=== PATIENT | male | born 1980 | race Caucasian/White ===

== ENCOUNTER 2022-09-21 06:33 | Emergency (ER) | payer SELFPAY ==
--- OUTSIDE RECORDS SUMMARY | 2022-09-21 06:36 | XMS REPORT | Continuity of Care Document ---
:1980 Author Organization [facility] t Address [address] [place] [address] Care Team Providers Name Role Phone PCP, PATIENT DOES NOT HAVE A Primary Care Physician UnavailDELFIN Ochoa Attending Clinician Unavailable DELFIN ARGUETA Attending Clinician Unavailable VU ORTEGA Attending Clinician Unavailable Vu Ortega MD Attending Clinician Doctor Unassigned, [place] Attending Clinician Unavailable CHRETIEN_F Attending Clinician Unavailable Edilberto Suarez Attending Clinician BRITNEY Attending Clinician Unavailable Mary Dukes Attending Clinician [phone] KARENA Attending Clinician Unavailable DR KARINA CUELLO Attending Clinician Unavailable ARMANI_F Admitting Clinician Unavailable BRITNEY Admitting Clinician Unavailable KARENA Admitting Clinician Unavailable DR KARINA CUELLO Admitting Clinician Unavailable Payers Payer Name Policy Type Policy Number Effective Date Expiration Date S ource Problems Condition Condition Condition Status Onset Resolution Last Treating Co mments Source Name Details Category Date Date Treatment Clinician Date Disorder Disorder Problem Active [facility] y of skin of Skin 3-16 [facility] No known No known Disease Unive rs active active ity of problems problems [place] [facility] Allergies, Adverse Reactions, Alerts Allergy Allergy Status Severity Reaction(s) Onset Inactive Treating Comm ents Source Name Type Date Date Clinician Bee Propensi Active Swelling 2018- Univer s Sting / ty to 02-03 ity of [place] adverse 00:00: [place] reaction 00 Medical s Branch BEE DRUG Active Swelling Univers STING / INGREDI 02-03 ity of VENOM 00:00: [place] [facility] Codeine Propensi Active Itching Univer s ty to 02-24 ity of adverse 00:00: [place] reaction 00 Medical s Branch Hydrocod Propensi Active Itching Unive rs one ty to 02-24 ity of adverse 00:00: [place] reaction Medical s Branch CODEINE DRUG Active ITCHING Univers INGREDI 02-24 ity of 00:00: [place] [facility] HYDROCOD DRUG Active ITCHING Univers ONE INGREDI 02-24 ity of 00:00: [place] [facility] Codeine Allergy Active Hives [place] [facility] Social History Social Habit Start Date Stop Date Quantity Comments Source Exposure to 2022-04-02 2022-04-12 Not sure [facility] SARS-CoV-2 (event) 00:00:00 19:22:00 [facility] Sex Assigned At [birth year] [facility] y of [place] 00:00:00 00:00:00 Medical Branch Smoking Status Start Date Stop Date Source Tobacco smoking consumption [facility] Medical unknown Branch Never Smoker [facility] Medications Ordered Filled Start Stop Current Ordering Indication Dosage Frequency Signature Comments Components Source Medication Medication Date Date Medication? Clinician (SIG) Name Name famotidine 2021- No 20mg 20 mg, Univ ers (PEPCID 04-13 Slow IV ity of (PF)) 00:30: 00:47 Push, [place] injection 00 :00 ONCE, 1 Medical 20 mg dose, On Branch 04/12/22 at 1930, DONOVAN methylpredn 2021- No 125mg 125 mg, U nivers isolone sod 04-13 Intravenou i ty of succ 00:30: 00:48 s, ONCE, 1 [place] (SOLU-MEDRO 00 :00 dose, On Medi donna L) e Branch injection 04/12/22 at 125 mg 1930, DONOVAN diphenhydrA 2021- No 25mg 25 mg, Uni vers MINE 04-13 Slow IV ity of (BENADRYL) 00:22: 00:47 Push, [place] injection 00 :00 ONCE, 1 Medical 25 mg dose, On Branch 04/12/22 at 1930, STAT cephALEXin Yes [id number] 500mg Take 1 Univers (KEFLEX) 5-03 capsule by ity o f 500 mg 00:00: mouth 4 [place] capsule 00 (four) Medical times Branch daily. mupirocin 2 Yes [id number] Apply to Univers % ointment 5-03 area(s) 3 ity of 00:00: (three) [place] 00 times Medical daily. Branch cephALEXin Yes [id number] 500mg Take 1 Univers (KEFLEX) 5-03 capsule by ity o f 500 mg 00:00: mouth 4 [place] capsule 00 (four) Medical times Branch daily. mupirocin 2 Yes [id number] Apply to Univers % ointment 5-03 area(s) 3 ity of 00:00: (three) [place] 00 times Medical daily. Branch ketorolac 2020- No 30mg 30 mg, Unive rs (TORADOL) 02-03 Intramuscu ity of injection 18:15: 17:45 lar, ONCE, [place] 30 mg 00 :00 1 dose, Medical Mon02/03/21 Branch at 1315, DONOVAN
Fa culty member approving Restricted medication : Edilberto CISNEROS ibuprofen Yes [id number] 600mg Take 1 U nivers 600 mg 7-07 tablet by ity of tablet 00:00: mouth [place] 00 every 6 Medical (six) Branch hours as needed for Pain (scale 4-6). ibuprofen Yes [id number] 600mg Take 1 U nivers 600 mg 7-07 tablet by ity of tablet 00:00: mouth [place] 00 every 6 Medical (six) Branch hours as needed for Pain (scale 4-6). ibuprofen Yes [id number] 600mg Take 1 U nivers 600 mg 7-07 tablet by ity of tablet 00:00: mouth [place] 00 every 6 Medical (six) Branch hours as needed for Pain (scale 4-6). ibuprofen Yes [id number] 600mg Take 1 U nivers 600 mg 7-07 tablet by ity of tablet 00:00: mouth [place] 00 every 6 Medical (six) Branch hours as needed for Pain (scale 4-6). predniSONE 2018- Yes [id number] Take 1 tab Univers 20 mg 7-07 orally ity of tablet 00:00: daily for [place] 00 next 3 Medical days Branch predniSONE 2019-0 Yes [id number] Take 1 tab Univers 20 mg 7-07 orally ity of tablet 00:00: daily for next 3 Medical days Branch predniSONE 2018- Yes [id number] Take 1 tab Univers 20 mg 7-07 orally ity of tablet 00:00: daily for next 3 Medical days Branch predniSONE Yes [id number] Take 1 tab Univers 20 mg 7-07 orally ity of tablet 00:00: daily for [place] next 3 Medical days Branch predniSONE 2019- Yes [id number] Take 1 tab Univers 20 mg 7-07 orally ity of tablet 00:00: daily for [place] next 3 Medical days Branch clotrimazol clotrimazol No clotrimazo [place] e-betametha e-betametha le-betamet Communi sone 1 sone 1 hasone 1 ty %-0.05 % %-0.05 % %-0.05 % Hos matilde topical topical topical l cream APPLY cream APPLY cream Clinics TO THE TO THE APPLY TO AFFECTED AFFECTED THE AND AND AFFECTED SURROUNDING SURROUNDING AND AREAS OF AREAS OF SURROUNDIN SKIN BY SKIN BY G AREAS OF TOPICAL TOPICAL SKIN BY ROUTE 2 ROUTE 2 TOPICAL TIMES PER TIMES PER ROUTE 2 DAY IN THE DAY IN THE TIMES PER MORNING AND MORNING AND DAY IN THE EVENING FOR EVENING FOR MORNING 2 WEEKS 2 WEEKS AND EVENING FOR 2 WEEKS Diflucan Diflucan No 1 Q1W Diflucan Swe brendan 150 mg 150 mg 150 mg Communi tablet Take tablet Take tablet ty 1 tablet 1 tablet Take 1 Hospi ta every week every week tablet l by oral by oral every week Cli nics route for 7 route for 7 by oral days. days. route for 7 days. mupirocin 2 mupirocin 2 No mupirocin [place] % topical % topical 2 % Commu ni ointment ointment topical ty APPLY A APPLY A ointment Hospi ta SMALL SMALL APPLY A l AMOUNT TO AMOUNT TO SMALL Clin ics THE THE AMOUNT TO AFFECTED AFFECTED THE AREA BY AREA BY AFFECTED TOPICAL TOPICAL AREA BY ROUTE 3 ROUTE 3 TOPICAL TIMES PER TIMES PER ROUTE 3 DAY DAY TIMES PER DAY Ecotrin 325 Ecotrin 325 No 1 Q1D Ecotrin [place] mg mg 325 mg Communi tablet,ente tablet,ente tablet,ent ty josiane coated josiane coated [place] Hos matilde Take 1 Take 1 coated l tablet tablet Take 1 Clinics every day every day tablet by oral by oral every day route for route for by oral 20 days. 20 days. route for 20 days. Immunizations Ordered Filled Immunization Date Status Comments Sour e Immunization Name Name Td 2021-11-30 Completed University of 00:00:[address] [facility] [place] Td 2021-11-30 Completed [facility] 00:00:[address] [facility] [place] Vital Signs Vital Name Observation Time Observation Value Comments Source Heart rate 2022-04-13 01:30:00 98 /min [facility] Oxygen saturation in 2022-04-13 01:30:00 95 /min [facility] Arterial blood by [facility] Pulse oximetry Branch Systolic blood 2022-04-13 00:23:00 135 mm[facility]Hg[facility] 2022-04-13 00:23:00 96 mm[Hg] [facility] Body temperature 2022-04-13 00:23:00 36.72 Nani [facility] Respiratory rate 2022-04-13 00:23:00 16 /min [facility] Body height 2022-04-13 00:23:00 182.9 cm [facility] Body weight 2022-04-13 00:23:00 79.379 kg [facility] BMI 2022-04-13 00:23:00 23.73 kg/m2 [facility] Systolic blood 2021-11-30 11:30:00 135 mm[Hg] Univer sity [facility] Diastolic blood 2021-11-30 11:30:00 91 mm[Hg] Unive rsity [facility] Heart rate 2021-11-30 11:30:00 74 /min Universi ty [facility] [place] [facility] Body temperature 2021-11-30 11:30:00 36.5 Nani [facility] ersity of [place] [facility] Respiratory rate 2021-11-30 11:30:00 18 /min Univ ersity [facility] [place] [facility] Body height 2021-11-30 11:30:00 182.9 cm Universi ty [facility] [place] [facility] Body weight 2021-11-30 11:30:00 79.379 kg Universi ty [facility] [place] [facility] BMI 2021-11-30 11:30:00 23.73 kg/m2 Universi ty of [facility] Oxygen saturation in 2021-11-30 11:30:00 98 /min University of Arterial blood by [facility] Pulse oximetry Branch Systolic blood 2021-02-03 17:45:00 123 mm[Hg] Univer sity of pressure [place] [facility] [place] Diastolic blood 2021-02-03 17:45:00 91 mm[Hg] [facility] Heart rate 2021-02-03 17:45:00 81 /min Universi ty [facility] [place] [facility] Respiratory rate 2021-02-03 17:45:00 17 /min [facility] ersity [facility] Oxygen saturation in 2021-02-03 17:45:00 96 /min University of Arterial blood by [facility] Pulse oximetry Branch Body temperature 2021-02-03 15:58:00 36.83 Nani [facility] ersity of [facility] [place] Body height 2021-02-03 15:58:00 180.3 cm Universi ty [facility] [place] [facility] Body weight 2021-02-03 15:58:00 77.111 kg [facility]i ty [facility] [place] [facility] BMI 2021-02-03 15:58:00 23.71 kg/m2 Universi ty [facility] BP Diastolic 2021-01-29 00:00:00 99 mm[Hg] [facility] [place] s Height 2021-01-29 00:00:00 72 [in_i] [facility] [place] s BMI (Body Mass 2021-01-29 00:00:00 22.6 kg/m2 [facility] s BP Systolic 2021-01-29 00:00:00 141 mm[Hg] [facility] [place] s Body Weight 2021-01-29 00:00:00 2665.6 [oz_av] [facility] s BP Diastolic 2020-10-13 00:00:00 104 mm[Hg] [facility] [place] s Height 2020-10-13 00:00:00 72 [in_i] [facility] [place] s BMI (Body Mass 2020-10-13 00:00:00 22.9 kg/m2 [facility] s BP Systolic 2020-10-13 00:00:00 140 mm[Hg] [facility] [place] s Body Weight 2020-10-13 00:00:00 2704 [oz_av] [facility] [place] s Procedures Procedure Date / Time Performed Performing Clinician [facility] e CONSENT/REFUSAL FOR 2021-11-30 11:24:11 Doctor Un[facility]igned, [facility] AND Name [facility] [place] TREATMENT NOTICE OF PRIVACY 2021-02-03 15:50:49 Doctor Unassigned, No [facility] CONSENT/REFUSAL FOR 2021-02-03 15:50:33 Doctor Unassigned, [facility] AND Name Medical Branch TREATMENT US, duplex, venous, 2021-01-29 00:00:00 [facility] lower extremity, [facility] s unilateral US, scrotum 2021-01-29 00:00:00 [facility] Plan of Care Planned Activity Planned Date Details Comments Source Instructions [facility] Clinics Encounters Start End Encounter Admission Attending Care Care Encounter Source Date/Time Date/Time Type Type Clinicians Facility Department ID 2022-04-12 2022-04-12 Emergency X DELFIN ARGUETA [facility] ERT 1 [id number] Univers 19:27:00 21:36:00 DELFIN ARGUETA [facility] 2022-04-12 2022-04-12 Emergency SERGIO Argueta [id number] Univers 19:27:00 21:36:00 Delfin MASON [id number] i ty of [place] [id number] [facility] [id number] [address] 2021-11-30 2021-11-30 Emergency [facility] [id number] Univers 06:26:00 07:17:00 WAKILI ity of [facility] [place] 2021-11-30 2021-11-30 Emergency Stephan[facility] [id number] Univers 06:26:00 07:17:00 Vu JOYGRADY [id number] ity of [place] [id number] [facility] [id number] [address] 2021-11-30 2021-11-30 Orders Doctor GRACE [id number] Univers 00:00:00 00:00:00 Only Unassigned, ISMA [id number] ity of [place] [facility] [id number] Jh as [id number] [address] 2021-11-29 2021-11-29 Outpatient CHRETIEN_F [facility] [id number] [place] 09:03:00 09:03:00 0502 Commun i ty Hospita l Clinics 2021-02-03 2021-02-03 Emergency Julia, K [facility] [id number] Univers 10:59:00 14:12:00 Michelle [place] [id number] i ty of [place] [id number] [facility] [id number] [address] 2021-02-03 2021-02-03 Emergency X [facility] ERT [id number] Univers 10:50:00 10:50:[address] [facility] [place] 2021-02-03 2021-02-03 Orders Doctor EDWARDS [id number] Univers 00:00:00 00:00:00 Only UnassignedISMA [id number] ity of [place] [facility] [id number] Jh as [id number] [address] 2021-01-29 2021-01-29 Outpatient WATERS_S [facility] [id number] [place] 09:37:00 09:37:00 [id number] Commun i ty Hospita l Clinics 2021-01-29 2021-01-29 Mary [facility] [place] 00:00:00 00:00:00 [facility] [place] [employer]: Hospital - ty [address], [place] [address] , Ph. 2021-01-29 2021-01-29 [facility] [id number] 00:00:00 00:00:00 Mary [id number] 2021-01-28 2021-01-28 Outpatient ERNST_S [facility] 2020 [place] 12:23:00 12:23:00 0701 Commun i ty Hospita l Clinics 2020-10-13 2020-10-13 Outpatient ERNST_S [facility] 2020 [place] 12:06:00 12:06:00 0316 Commun i ty Hospita l Clinics 2020-10-13 2020-10-13 [facility] [place] 16 [place] 00:00:00 00:00:00 [facility] [employer]: Hospital - ty [address] [place] [address] [address], [place] [address] , Ph. 2020-10-13 2020-10-13 [facility] [id number] 00:00:00 00:00:00 Mary [id number] 2020-09-21 2020-09-21 Outpatient YARAROECK [facility] [place] 10:29:00 10:29:00 _L 0222 Commun i ty Hospita l Clinics 2008-07-19 2008-07-[address] [facility] [place] [id number] [facility] 12:01:00 12:10:00 KARINA JOSEPH/LI V/SA) Results This patient has no known results.
[2022-09-21] MEDS ORDERED: IBUPROFEN 200 MG TAB PO ONE (07:33)
--- NOTE | 2022-09-21 08:12 | RAD REPORT ---
EXAM DESCRIPTION: RAD - Foot Right 3 View - 09/21/2022 7:56 am CLINICAL HISTORY: PAIN COMPARISON: FOOT W OBLIQUES dated 10/18/2010; FOOT W OBLIQUES dated 08/06/2007 FINDINGS/IMPRESSION: No acute fracture. No malalignment. Calcaneal spurring.
--- NOTE | 2022-09-21 09:17 | RAD REPORT ---
EXAM DESCRIPTION: US - Extrem Venous W Compress Mukund - 09/21/2022 8:54 am CLINICAL HISTORY: PAIN COMPARISON: No comparisons TECHNIQUE: Real-time sonographic evaluation of the lower extremity deep venous systems was performed using color Doppler, grayscale, and compression. FINDINGS: Bilateral lower extremities. Normal compressibility, flow augmentation, phasic flow and spontaneous flow is identified in both the left and right lower extremity deep venous systems. No intraluminal filling defects seen. Hypoechoic solid nodule at the patient's site of palpation measuring 13 mm is nonspecific. IMPRESSION: No DVT in either lower extremity. Hypoechoic nodule at the foot is nonspecific. MRI with without contrast could better assess if clinic ally indicated.
--- NOTE | 2022-09-21 09:28 | EDPHYS ---
Physician Documentation [facility] Name: Lefty Loomis Age: 41 yrs Sex: Male : 1980 Arrival Date: 09/21/2022 Time: 06:36 Bed 7 Private MD: ED Physician Alejo Schwartz HPI: 09/21 08:02 This 41 yrs old Male presents to ER via Ambulatory with complaints of Leg ansley Pain, Leg Swelling. 08:02 The patient presents with pain. ansley Historical: - Allergies: 07:16 Codeine; pf1 - Home Meds: 07:16 None [Active]; pf1 - PMHx: 07:16 None; pf1 - PSHx: 07:16 right foot; pf1 - Immunization history:: Adult Immunizations unknown. - Social history:: Smoking status: unknown. ROS: 08:08 Constitutional: Negative for fever, chills, and weight loss, Eyes: Negative for injury, ansley pain, redness, and discharge, ENT: Negative for injury, pain, and discharge, Neck: Negative for injury, pain, and swelling, Cardiovascular: Negative for chest pain, palpitations, and edema, Respiratory: Negative for shortness of breath, cough, wheezing, and pleuritic chest pain, Abdomen/GI: Negative for abdominal pain, nausea, vomiting, diarrhea, and constipation, Back: Negative for injury and pain, : Negative for injury, bleeding, discharge, and swelling, Skin: Negative for injury, rash, and discoloration, Neuro: Negative for headache, weakness, numbness, tingling, and seizure, Psych: Negative for depression, anxiety, suicide ideation, homicidal ideation, and hallucinations, Allergy/Immunology: Negative for hives, rash, and allergies, Endocrine: Negative for neck swelling, polydipsia, polyuria, polyphagia, and marked weight changes, Hematologic/Lymphatic: Negative for swollen nodes, abnormal bleeding, and unusual bruising. 08:08 Constitutional: Positive for 08:08 MS/extremity: Positive for pain, tenderness, of the ball of right foot. Exam: 08:08 Constitutional: This is a well developed, well nourished patient who is awake, alert, ansley and in no acute distress. Head/Face: Normocephalic, atraumatic. Eyes: Pupils equal round and reactive to light, extra-ocular motions intact. Lids and lashes normal. Conjunctiva and sclera are non-icteric and not injected. Cornea within normal limits. Periorbital areas with no swelling, redness, or edema. ENT: Nares patent. No nasal discharge, no septal abnormalities noted. Tympanic membranes are normal and external auditory canals are clear. Oropharynx with no redness, swelling, or masses, exudates, or evidence of obstruction, uvula midline. Mucous membranes moist. Neck: Trachea midline, no thyromegaly or masses palpated, and no cervical lymphadenopathy. Supple, full range of motion without nuchal rigidity, or vertebral point tenderness. No Meningismus. Chest/axilla: Normal chest wall appearance and motion. Nontender with no deformity. No lesions are appreciated. Cardiovascular: Regular rate and rhythm with a normal S1 and S2. No gallops, murmurs, or rubs. Normal PMI, no JVD. No pulse deficits. Respiratory: Lungs have equal breath sounds bilaterally, clear to auscultation and percussion. No rales, rhonchi or wheezes noted. No increased work of breathing, no retractions or nasal flaring. Abdomen/GI: Soft, non-tender, with normal bowel sounds. No distension or tympany. No guarding or rebound. No evidence of tenderness throughout. Back: No spinal tenderness. No costovertebral tenderness. Full range of motion. Male : Normal genitalia with no discharge or lesions. Skin: Warm, dry with normal turgor. Normal color with no rashes, no lesions, and no evidence of cellulitis. Neuro: Awake and alert, GCS 15, oriented to person, place, time, and situation. Cranial nerves II-XII grossly intact. Motor strength 5/5 in all extremities. Sensory grossly intact. Cerebellar exam normal. Normal gait. Psych: Awake, alert, with orientation to person, place and time. Behavior, mood, and affect are within normal limits. 08:08 Musculoskeletal/extremity: Extremities: grossly normal except: decreased ROM, pain, ROM: intact in all extremities, full active range of motion, full passive range of motion, Circulation is intact in all extremities. Sensation intact. Compartment Syndrome exam of affected extremity: is normal. DVT Exam: No signs of deep vein thrombosis. no pain, no swelling, no tenderness, negative Homans' sign noted on exam, no appreciated bluish discoloration, no erythema, no increased warmth. Vital Signs: 07:12 BP 135 / 96; Pulse 83; Resp 18; Temp 98.8; Pulse Ox 99% ; Weight 79.38 kg; Height 6 ft. pf1 0 in. (182.88 cm); Pain 8/10; 08:17 BP 123 / 91; Pulse 79; Resp 17 S; Pulse Ox 99% on R/A; kc6 09:10 BP 129 / 94; Pulse 70; Pulse Ox 98% on R/A; kc6 07:12 Body Mass Index 23.73 (79.38 kg, 182.88 cm) pf1 MDM: 07:09 Patient medically screened. [facility] 08:10 Data reviewed: vital signs, nurses notes, lab test result(s), radiologic studies, ansley doppler, plain films. Consideration of Admission/Observation Escalation of care including admission/observation considered. Management of patient was discussed with the following: Generator Operator: KASHIF RIVERO. Test considered but Not performed: Labs: NO CBC , COMP MET. 09/21 07:26 Order name: US Extremity Venous W Compression Mukund [facility] 09/21 07:26 Order name: Foot Right 3 View XRAY [facility] 09/21 08:12 Order name: RAD; Complete Time: 09:26 EDMS 09/21 09:18 Order name: US; Complete Time: 09:26 EDMS Administered Medications: 07:31 Drug: Motrin (ibuprofen) 600 mg Route: PO; kc6 08:31 Follow up: Response: No adverse reaction; Pain is decreased kc6 Disposition Summary: 09/21/22 09:27 Discharge Ordered Location: Home ansley Problem: new ansley Symptoms: have improved ansley Condition: Stable ansley Diagnosis - Pain in right foot - SOFT TISSUE NODULES (2) ansley - Varicose veins of right lower extremities with pain - NO COMPLICATIONS ansley Followup: ansley - With: Private Physician - When: 2 - 3 days - Reason: Recheck today's complaints, Continuance of care, Re-evaluation by your physician Followup: ansley - With: - When: 2 - 3 days - Reason: Recheck today's complaints, Re-evaluation by your physician Discharge Instructions: - Discharge Summary Sheet ansley - Musculoskeletal Pain ansley - Varicose Veins ansley - Foot Pain ansley Forms: - Medication Reconciliation Form ansley - Thank You Letter ansley - Antibiotic Education ansley - Prescription Opioid Use ansley - Work release form kc6 Prescriptions: - Diclofenac Sodium 75 mg Oral tablet,delayed release (DR/EC) - take 1 tablet by ORAL route 2 times per day; 20 tablet; Refills: 0, Product ansley Selection Permitted Signatures: Dispatcher [employer] Alejo Amos, Suni Dejesus MD, cha RN RN kc6 Melody kincaid RN RN pf1
--- NOTE | 2022-09-21 09:28 | ER ---
Nurse's Notes [facility] Name: Lefty Loomis Age: 41 yrs Sex: Male : 1980 Arrival Date: 09/21/2022 Time: 06:36 Bed 7 Private MD: Diagnosis: Pain in right foot-SOFT TISSUE NODULES (2);Varicose veins of right lower extremities with pain-NO COMPLICATIONS Presentation: 09/21 07:12 Chief complaint: Patient states: right lower extremity pain of 8 with bulging veins and pf1 leg fatigue,onset 1-2 months with 2 hard bumps to right medial foot,onset 2 months. Patient stated the pain is worse with ambulating and denies any injury. Coronavirus screen: Vaccine status: Patient reports being unvaccinated. Client denies travel out of the [place] in the last 14 days. At this time, the client does not indicate any symptoms associated with coronavirus-19. Ebola Screen: Patient negative for fever greater than or equal to 101.5 degrees Fahrenheit, and additional compatible Ebola Virus Disease symptoms. Initial Sepsis Screen: Does the patient meet any 2 criteria? No. Patient's initial sepsis screen is negative. Does the patient have a suspected source of infection? No. Patient's initial sepsis screen is negative. Risk Assessment: Do you want to hurt yourself or someone else? Patient reports no desire to harm self or others. 07:12 Method Of Arrival: Ambulatory pf1 07:12 Acuity: ARY 3 pf1 08:17 Onset of symptoms was June 2022. kc6 Historical: - Allergies: 07:16 Codeine; pf1 - Home Meds: 07:16 None [Active]; pf1 - PMHx: 07:16 None; pf1 - PSHx: 07:16 right foot; pf1 - Immunization history:: Adult Immunizations unknown. - Social history:: Smoking status: unknown. Screenin:20 [facility] ED Fall Risk Assessment (Adult) History of falling in the last 3 months, kc6 including since admission No falls in past 3 months (0 pts) Confusion or Disorientation No (0 pts) Intoxicated or Sedated No (0 pts) Impaired Gait No (0 pts) Mobility Assist Device Used No (0 pt) Altered Elimination No (0 pt) Score/Fall Risk Level 0 - 2 = Low Risk Oriented to surroundings, Maintained a safe environment, Educated pt \T\ family on fall prevention, incl call for assistance when getting out of bed, Assessed \T\ reinforced patient's understanding of fall precautions, Hourly rounding (assess needs \T\ fall precautionary measures) done. Abuse screen: Denies threats or abuse. Denies injuries from another. Nutritional screening: No deficits noted. Tuberculosis screening: No symptoms or risk factors identified. Assessment: 07:18 General: Appears in no apparent distress. comfortable, Behavior is calm, cooperative, kc6 appropriate for age. Pain: Complains of pain in right leg Pain radiates to groin Pain currently is 4 out of 10 on a pain scale. at worst was 8 out of 10 on a pain scale. Quality of pain is described as dull, Pain began 1-2 months ago Is continuous, Alleviated by nothing. Aggravated by increased activity, weight bearing, Noted to be grimacing, resistant to movement, Also complains of no other associated symptoms. Neuro: Zamarripa Agitation-Sedation Scale (RASS): 0 - Alert and Calm Level of Consciousness is awake, alert, obeys commands, Oriented to person, place, time, situation, Appropriate for age. Cardiovascular: Capillary refill < 3 seconds. Respiratory: Airway is patent Trachea midline Respiratory effort is even, unlabored, Respiratory pattern is regular, symmetrical. GI: No signs and/or symptoms were reported involving the gastrointestinal system. : No signs and/or symptoms were reported regarding the genitourinary system. EENT: No signs and/or symptoms were reported regarding the EENT system. Derm: No signs and/or symptoms reported regarding the dermatologic system. Skin is intact, Skin is pink, warm \T\ dry. Musculoskeletal: Circulation, motion, and sensation intact. Capillary refill < 3 seconds, Range of motion: intact in all extremities. 08:17 Reassessment: Patient appears in no apparent distress at this time. No changes from kc6 previously documented assessment. Patient and/or family updated on plan of care and expected duration. Pain level reassessed. Patient is alert, oriented x 3, equal unlabored respirations, skin warm/dry/pink. 09:10 Reassessment: Patient appears in no apparent distress at this time. No changes from kc6 previously documented assessment. Patient and/or family updated on plan of care and expected duration. Pain level reassessed. Patient is alert, oriented x 3, equal unlabored respirations, skin warm/dry/pink. Vital Signs: 07:12 BP 135 / 96; Pulse 83; Resp 18; Temp 98.8; Pulse Ox 99% ; Weight 79.38 kg; Height 6 ft. pf1 0 in. (182.88 cm); Pain 8/10; 08:17 BP 123 / 91; Pulse 79; Resp 17 S; Pulse Ox 99% on R/A; kc6 09:10 BP 129 / 94; Pulse 70; Pulse Ox 98% on R/A; kc6 07:12 Body Mass Index 23.73 (79.38 kg, 182.88 cm) pf1 ED Course: 06:36 Patient arrived in ED. jj6 07:09 Alejo Schwartz MD is Attending Physician. ansley 07:11 Suni Luna, RN is Primary Nurse. kc6 07:16 Triage completed. pf1 07:20 Patient has correct armband on for positive identification. Bed in low position. Call kc6 light in reach. Side rails up X 1. 07:20 Arm band placed on. kc6 09:27 Choco Alejo DPM is Referral Physician. [facility] 09:54 No provider procedures requiring assistance completed. Patient did not have IV access kc6 during this emergency room visit. Administered Medications: 07:31 Drug: Motrin (ibuprofen) 600 mg Route: PO; kc6 08:31 Follow up: Response: No adverse reaction; Pain is decreased kc6 Medication: 09:54 VIS not applicable for this client. kc6 Outcome: 09:27 Discharge ordered by . [facility] 09:54 Discharged to home ambulatory. kc6 09:54 Condition: stable 09:54 Discharge instructions given to patient, Instructed on discharge instructions, follow up and referral plans. medication usage, Demonstrated understanding of instructions, follow-up care, medications, Prescriptions given X 1. 09:54 Patient left the ED. kc6 Signatures: Alejo Schwartz MD MD cha Jeffries, Jennifer jj6 Suni Luna, RN RN kc Melody kincaid RN RN pf1
[2022-09-21 09:59] VITALS: TEMP 98.8
[2022-09-21 10:02] VITALS: BP 129/94; O2SAT 98
== END 2022-09-21 09:54 | disposition home or self-care (01) ==
LOC: ER 06:33
DX: I83.811 Varicose veins of right lower extremity with pain (principal); Z88.5 Allergy status to narcotic agent
CPT/HCPCS: 93970; 99283

== ENCOUNTER 2024-09-15 14:24 | Emergency (ER) | payer MEDICARE, SELFPAY ==
--- OUTSIDE RECORDS SUMMARY | 2024-09-15 14:28 | XMS REPORT | Continuity of Care Document ---
Author Name Unknown Address [address] [place] [address] [facility] thconnect Address [address] [place] [address] Care Team Providers Care Orthotic And Prosthetic Technician Name Role Phone PCP, PATIENT DOES NOT HAVE A Primary Care Physic lizzette Unavailable KRISTI POWELL Attending Clinician Unavailable Kristi Powell DO Attending Clinician [phone] TRACI WYNN Attending Clinician Unavailable Traci Wynn MD Attending Clinician [phone] DELFIN ARGUETA Attending Clinician Unavailable DELFIN ARGUETA Attending Clinician Unavailable VU DAMICO Attending Clinician Unavailable Vu Damico MD Attending Clinician [phone] Doctor Unassigned, [place] Attending Clinician [facility] ARMANI_F Attending Clinician Unavailable Edilberto Suarez Attending Clinician [phone] BRITNEY Attending Clinician Unavailable Mary Dukes Attending Clinician [phone] KARENA Attending Clinician Unavailable DR KARINA CUELLO Attending Clinician U navailable TRACI WYNN Admitting Clinician Unavailable ARMANI_F Admitting Clinician Unavailable BRITNEY Admitting Clinician Unavailable KARENA Admitting Clinician Unavailable CUATE, DR KARINA DALTON Admitting Clinician U navailable Payers Payer Name Policy Type Policy Number Effective Date Expirati on Date Source HIM [employer]BS BLUE ADVANTAGE HMO [id number] 2022 00:00:00 Problems Condition Name Condition Details Condition Category Status Onset Date Resolution Date Last Treatment Date Treating Clinician Comments Source Disorder of skin Disorder of Skin Problem Active 3-16 00:00: 00 [facility] No known active problems No known active problems Disease [facility] Allergies, Adverse Reactions, Alerts Allergy Name Allergy Type Status Severity Reaction(s) Onset Date Inactive Date Treating Clinician Comments Source Bee Sting / Venom Propensi ty to adverse reaction s Active Swelling 02-03 00:00: 00 [facility] BEE STING / VENOM DRUG INGREDI Active Swelling 02-03 00:00: 00 [facility] Codeine Propensi ty to adverse reaction s Active Itching 02-24 00:00: 00 [facility] Hydrocod one Propensi ty to adverse reaction s Active Itching 02-24 00:00: 00 [facility] CODEINE DRUG INGREDI Active ITCHING 02-24 00:00: 00 [facility] HYDROCOD ONE DRUG INGREDI Active ITCHING 02-24 00:00: 00 [facility] Codeine Allergy to substanc e Active Hives [facility] Social History Social Habit Start Date Stop Date Quantity Comments Source [facility] Exposure to SARS-CoV-2 (event) 2022-04-02 00:00:00 2022-04-12 19:22:00 Not sure [facility] Sex Assigned At 1980 00:00:00 1980 00:00:00 [facility] Smoking Status Start Date Stop Date Source Tobacco smoking consumption unknown [facility] Never Smoker [facility] Medications Ordered Medication Name Filled Medication Name Start Date Stop Date Current Medication? Ordering Clinician Indication Dosage Frequency Signature (SIG) Comments Components Source benzonatate 100 mg capsule 2022-07 00:00: 00 Yes [id number] 100mg Take 1 capsule by mouth 3 (three) times daily as needed for Cough. [facility] naproxen sodium (ANAPROX DS) 550 mg tablet 2022-07 00:00: 00 Yes [id number] 550mg Take 1 tablet by mouth in the morning and 1 tablet in the evening. Take with meals. [facility] ondansetron 4 mg disintegrat ing tablet 2022-07 00:00: 00 Yes [id number] 4mg Take 1 tablet by mouth every 8 (eight) hours as needed for Nausea and Vomiting (N/V). [facility] TRAMADOL 50 mg tablet 01-11 00:00: 00 Yes [id number] 50mg Take 1 tablet by mouth every 6 (six) hours as needed for Pain (scale 4-6). Indication s: acute pain [facility] cephALEXin (KEFLEX) 500 mg capsule 01-11 00:00: 00 Yes [id number] 500mg Take 1 capsule by mouth 4 (four) times daily. [facility] famotidine (PEPCID (PF)) injection 20 mg 04-13 00:30: 00 04-13 00:47 :00 No 20mg 20 mg, Slow IV Push, ONCE, 1 dose, On Mon04/12/22 at 1930, [facility] methylpredn isolone sod succ (SOLU-MEDRO L) injection 125 mg 04-13 00:30: 00 04-13 00:48 :00 No 125mg 125 mg, Intravenou s, ONCE, 1 dose, On Mon04/12/22 at 1930, DONOVAN [facility] diphenhydrA MINE (BENADRYL) injection 25 mg 04-13 00:22: 00 04-13 00:47 :00 No 25mg 25 mg, Slow IV Push, ONCE, 1 dose, On Mon04/12/22 at 1930, STAT [facility] cephALEXin (KEFLEX) 500 mg capsule -03 00:00: 00 01-11 00:00 :00 No [id number] 500mg Take 1 capsule by mouth 4 (four) times daily. [facility] ketorolac (TORADOL) injection 30 mg 02-03 18:15: 00 02-03 17:45 :00 No 30mg 30 mg, Intramuscu lar, ONCE, 1 dose, Mon02/03/21 at 1315, DONOVAN
Fa culty member approving Restricted medication : Edilberto CISNEROS [facility] ibuprofen 600 mg tablet 02-03 00:00: 00 Yes [id number] 600mg Take 1 tablet by mouth every 6 (six) hours as needed for Pain (scale 4-6). [facility] predniSONE 20 mg tablet 02-03 00:00: 00 Yes [id number] Take 1 tab orally daily for next 3 days [facility] clotrimazol e-betametha sone 1 %-0.05 % topical cream APPLY TO THE AFFECTED AND SURROUNDING AREAS OF SKIN BY TOPICAL ROUTE 2 TIMES PER DAY IN THE MORNING AND EVENING FOR 2 WEEKS clotrimazol e-betametha sone 1 %-0.05 % topical cream APPLY TO THE AFFECTED AND SURROUNDING AREAS OF SKIN BY TOPICAL ROUTE 2 TIMES PER DAY IN THE MORNING AND EVENING FOR 2 WEEKS No clotrimazo le-betamet hasone 1 %-0.05 % topical cream APPLY TO THE AFFECTED AND SURROUNDIN G AREAS OF SKIN BY TOPICAL ROUTE 2 TIMES PER DAY IN THE MORNING AND EVENING FOR 2 WEEKS [facility] Diflucan 150 mg tablet Take 1 tablet every week by oral route for 7 days. Diflucan 150 mg tablet Take 1 tablet every week by oral route for 7 days. No 1 Q1W Diflucan 150 mg tablet Take 1 tablet every week by oral route for 7 days. [facility] mupirocin 2 % topical ointment APPLY A SMALL AMOUNT TO THE AFFECTED AREA BY TOPICAL ROUTE 3 TIMES PER DAY mupirocin 2 % topical ointment APPLY A SMALL AMOUNT TO THE AFFECTED AREA BY TOPICAL ROUTE 3 TIMES PER DAY No mupirocin 2 % topical ointment APPLY A SMALL AMOUNT TO THE AFFECTED AREA BY TOPICAL ROUTE 3 TIMES PER DAY [facility] Ecotrin 325 mg tablet,ente josiane coated Take 1 tablet every day by oral route for 20 days. Ecotrin 325 mg tablet,ente josiane coated Take 1 tablet every day by oral route for 20 days. No 1 Q1D Ecotrin 325 mg tablet,ent chelsea coated Take 1 tablet every day by oral route for 20 days. Saloni Rueda [facility] Immunizations Ordered Immunization Name Filled Immunization Name Date Status Comments Source TD, NOS 2021-11-30 00:00:00 Completed [facility] Td 2021-11-30 00:00:00 Completed [facility] Td 2021-11-30 00:00:00 Completed [facility] TD, NOS Unknown Completed [facility] Vital Signs Vital Name Observation Time Observation Value Comments S evangelist Systolic blood pressure 2023-06-12 14:33:14 125 mm[Hg] [facility] Diastolic blood pressure 2023-06-12 14:33:14 93 mm[Hg] [facility] Heart rate 2023-06-12 14:33:14 85 /min [facility] Body temperature 2023-06-12 14:33:14 37.39 Nani [facility] Respiratory rate 2023-06-12 14:33:14 16 /min [facility] Oxygen saturation in Arterial blood by Pulse oximetry 2023-06-12 14:30:00 100 /min [facility] Systolic blood pressure 2023-01-11 12:51:00 168 mm[Hg] [facility] Diastolic blood pressure 2023-01-11 12:51:00 114 mm[Hg] [facility] Heart rate 2023-01-11 12:51:00 92 /min [facility] Body temperature 2023-01-11 12:51:00 37.11 Nani [facility] Respiratory rate 2023-01-11 12:51:00 18 /min [facility] Body weight 2023-01-11 12:51:00 79.379 kg [facility] BMI 2023-01-11 12:51:00 23.73 kg/m2 [facility] Oxygen saturation in Arterial blood by Pulse oximetry 2023-01-11 12:51:00 99 /min [facility] Heart rate 2022-04-13 01:30:00 98 /min [facility] Oxygen saturation in Arterial blood by Pulse oximetry 2022-04-13 01:30:00 95 /min [facility] Systolic blood pressure 2022-04-13 00:23:00 135 mm[Hg] [facility] Diastolic blood pressure 2022-04-13 00:23:00 96 mm[Hg] [facility] Body temperature 2022-04-13 00:23:00 36.72 Nani [facility] Respiratory rate 2022-04-13 00:23:00 16 /min [facility] Body height 2022-04-13 00:23:00 182.9 cm [facility] Body weight 2022-04-13 00:23:00 79.379 kg [facility] BMI 2022-04-13 00:23:00 23.73 kg/m2 [facility] Systolic blood pressure 2021-11-30 11:30:00 135 mm[Hg] [facility] Diastolic blood pressure 2021-11-30 11:30:00 91 mm[Hg] [facility] Heart rate 2021-11-30 11:30:00 74 /min [facility] Body temperature 2021-11-30 11:30:00 36.5 Nani [facility] Respiratory rate 2021-11-30 11:30:00 18 /min [facility] Body height 2021-11-30 11:30:00 182.9 cm [facility] Body weight 2021-11-30 11:30:00 79.379 kg [facility] BMI 2021-11-30 11:30:00 23.73 kg/m2 [facility] Oxygen saturation in Arterial blood by Pulse oximetry 2021-11-30 11:30:00 98 /min [facility] Systolic blood pressure 2021-02-03 17:45:00 123 mm[Hg] [facility] Diastolic blood pressure 2021-02-03 17:45:00 91 mm[Hg] [facility] Heart rate 2021-02-03 17:45:00 81 /min [facility] Respiratory rate 2021-02-03 17:45:00 17 /min [facility] Oxygen saturation in Arterial blood by Pulse oximetry 2021-02-03 17:45:00 96 /min [place] o [facility] Body temperature 2021-02-03 15:58:00 36.83 Nani [facility] Body height 2021-02-03 15:58:00 180.3 cm [facility] Body weight 2021-02-03 15:58:00 77.111 kg [facility] BMI 2021-02-03 15:58:00 23.71 kg/m2 [facility] BP Diastolic 2021-01-29 00:00:00 99 mm[Hg] [facility] Height 2021-01-29 00:00:00 72 [in_i] [facility] BMI (Body Mass Index) 2021-01-29 00:00:00 22.6 kg/m2 [facility] BP Systolic 2021-01-29 00:00:00 141 mm[Hg] [facility] Body Weight 2021-01-29 00:00:00 2665.6 [oz_av] [facility] BP Diastolic 2020-10-13 00:00:00 104 mm[Hg] [facility] Height 2020-10-13 00:00:00 72 [in_i] [facility] BMI (Body Mass Index) 2020-10-13 00:00:00 22.9 kg/m2 [facility] BP Systolic 2020-10-13 00:00:00 140 mm[Hg] [facility] Body Weight 2020-10-13 00:00:00 2704 [oz_av] [facility] Procedures Procedure Date / Time Performed Performing Clinicia n Source ASSIGNMENT OF BENEFITS 2023-06-12 15:04:30 Docto r Unassigned, [place] [facility] RAPID STREP SCREEN FOR GROUP A 2023-06-12 14:29:00 Kristi Powell [facility] RAPID INFLUENZA A/B 2023-06-12 14:29:00 Ken Powell [facility] COVID-19 (ID NOW RAPID TESTING) 2023-06-12 14:29:00 Kristi Powell [facility] CONSENT/REFUSAL FOR DIAGNOSIS AND TREATMENT 2023-06-12 14:19:03 Doctor Unassigned, [place] [facility] ED LACERATION REPAIR 2023-01-11 14:23:26 Kristopher Wynn [facility] XR HAND <3 VW RIGHT 2023-01-11 13:49:36 Herminia Wynn [facility] CONSENT/REFUSAL FOR DIAGNOSIS AND TREATMENT 2021-11-30 11:24:11 Doctor Unassigned, [place] [facility] NOTICE OF PRIVACY PRACTICES 2021-02-03 15:50:49 Doctor Unassigned, [place] [facility] CONSENT/REFUSAL FOR DIAGNOSIS AND TREATMENT 2021-02-03 15:50:33 Doctor Unassigned, [place] [facility] US, duplex, venous, lower extremity, unilateral 2021-01-29 00:00:00 [facility] US, scrotum 2021-01-29 00:00:00 [facility] Plan of Care Planned Activity Planned Date Details Comments Source Instructions [facility] Encounters Start Date/Time End Date/Time Encounter Type Admission Type Attending Clinicians Care Facility Care Department Encounter ID Source 2024-08-27 11:49:20 2024-08-27 11:49:[address] [facility] [id number] Manfred Ch 2023-06-12 08:32:00 2023-06-12 09:17:00 Emergency X KRISTI POWELL [facility] ERT [id number] [facility] 2023-06-12 08:32:00 2023-06-12 09:17:00 Emergency Kristi Powell [facility] [id number] [facility] 2023-01-11 07:52:00 2023-01-11 10:10:00 Emergency X TRACI WYNN [facility] ERT [id number] [facility] 2023-01-11 07:52:00 2023-01-11 10:10:00 Emergency Traci Wynn [facility] [id number] [id number] [facility] 2022-04-12 19:27:00 2022-04-12 21:36:00 Emergency DELFIN ELLISON DELFIN [facility] ERT [id number] [facility] 2022-04-12 19:27:00 2022-04-12 21:36:00 Emergency Delfin Argueta [facility] [id number] [id number] [facility] 2021-11-30 06:26:00 2021-11-30 07:17:00 Emergency VU MONTERO [facility] ERT [id number] [facility] 2021-11-30 06:26:00 2021-11-30 07:17:00 Emergency Vu Damico [facility] [id number] [id number] [id number] [id number] [facility] 2021-11-30 00:00:00 2021-11-30 00:00:00 Orders Only Doctor Unassigned, [place] [facility] [id number] [id number] [id number] [facility] 2021-11-29 09:03:00 2021-11-29 09:03:00 Outpatient CHRETIEN_F [facility] [id number] [place] [facility] 2021-02-03 10:59:00 2021-02-03 14:12:00 Emergency Edilberto Cisneros [facility] 1..840.114 [id number] [id number] [id number] [facility] 2021-02-03 10:50:00 2021-02-03 10:50:00 Emergency X [facility] ERT [id number] [facility] 2021-02-03 00:00:00 2021-02-03 00:00:00 Orders Only Doctor Unassigned, [place] [facility] 1..840.114 350.1.13.10 [id number] [id number] [facility] 2021-01-29 09:37:00 2021-01-29 09:37:00 Outpatient WATERS_S [facility] [id number] [place] [facility] 2021-01-29 00:00:00 2021-01-29 00:00:00 PADMINI LoweENVIRONMENTAL HEALTH PHYSICIAN-C: [address] [place] [address], [address] [address] , Ph. [facility] [id number] [place] [facility] 2021-01-29 00:00:00 2021-01-29 00:00:00 Outpatient Mary Dukes [facility] [id number] 2021-01-28 12:23:00 2021-01-28 12:23:00 Outpatient [facility]ERS[id number] [place] [facility] 2020-10-13 12:06:00 2020-10-13 12:06:00 Outpatient W[facility]ERS_[id number] [place] [facility] 2020-10-13 00:00:00 2020-10-13 00:00:00 PADMINI LoweENVIRONMENTAL HEALTH PHYSICIAN-C: [address] [place] [address], [address] [place] [id number] , Ph. [facility] [place] [facility] [id number] [facility] 2020-10-13 00:00:00 2020-10-13 00:00:00 Outpatient Mary Dukes [facility] [id number] 2020-09-21 10:29:00 2020-09-21 10:29:00 Outpatient KILEY Wallace [facility] [id number] 2008-07-19 12:01:00 2008-07-19 12:10:00 Emergency 1 KARINA CUELLO [facility] MED [id number] [facility] mishra (SUNNY/FANNY Knapp/)
--- NOTE | 2024-09-15 15:59 | RAD REPORT ---
EXAM: CT brain without contrast HISTORY: Dizziness COMPARISON: 2006 TECHNIQUE: Multiple contiguous axial images were obtained and a CT of the brain without contrast.. Sagittal and coronal reconstruction performed. Automated exposure control, adjustment of the mA and/or kV according to patient size, and/or iterative reconstruction. Unless otherwise specified, incidental f indings do not require dedicated imaging follow-up FINDINGS: An intracranial bleed is not seen Ventricles are normal caliber No extra-axial fluid collection noted No significant hypodensity within the brain No fluid within the visualized sinuses or mastoids noted. IMPRESSION: No acute intracranial abnormality noted. If the patient continues to have symptoms to suggest an acute intracranial abnormality then MRI of th e brain would be recommended.
--- NOTE | 2024-09-15 16:10 | RAD REPORT ---
Procedure: Chest Single View HISTORY: Shortness of breath COMPARISON: none FINDINGS: The lungs appear clear of acute infiltrate. No significant pleural effusion noted. The heart is normal size. IMPRESSION: No acute abnormality is displayed.
[2024-09-15 16:48] LABS: Absolute Eosinophils 0.1 K/uL (0-0.5); Absolute Lymphocytes (CBC) 2.1 K/uL (0.7-4.9); Absolute Monocytes 0.4 K/uL (0.1-1.3); Absolute Neutrophil 3.7 K/uL (1.8-8.0); Basophils % 0.5 % (0-1.3); Hemoglobin 16.8 g/dL (13.6-17.9); Lymphocytes % 33.8 % (15.3-44.8); MCHC 34.3 g/dL (32.0-36.0); MCV 96.3 fL (80-100); MPV 7.8 fL (7.6-11.3); Monocytes % 6.5 % (3.3-12.3); Neutrophils % 58.2 % (41.7-73.7); Nucleated Red Blood Cells % 0.1 % (0-0); Platelets 323 thou/uL (152-406); RBC Red Blood Cell Count 5.09 M/uL (4.33-5.43); Red Cell Distribution Width 12.8 % (12.1-15.2)
[2024-09-15 16:56] LABS: PT Prothrombin Time 10.3 SECONDS (9.4-12.5); PTT, Activated Partial Thromb 31.2 SECONDS (24.3-36.9); Protime INR 0.98
[2024-09-15 17:06] LABS: ALT/SGPT 39 U/L (16-61); AST/SGOT 31 U/L (15-37); Albumin 3.9 g/dL (3.4-5.0); Albumin/Globulin Ratio 0.9 (1.1-1.8); Alkaline Phosphatase 69 U/L (45-117); Anion Gap 9.5 mEq/L (5.0-15.0); BUN Blood Urea Nitrogen 9 mg/dL (7-18); Bicarbonate 24 mEq/L (21-32); Bilirubin Total 0.3 mg/dL (0.2-1.0); Globulin 4.5 g/dL (2.3-3.5); Glomerular Filtration Rate 110 ml/min (=/>90); Glucose Level 109 mg/dL (74-106); Magnesium 2.4 mg/dL (1.6-2.4); Potassium 3.5 mEq/L (3.5-5.1); Protein, Total 8.4 g/dL (6.4-8.2); Sodium Level 138 mEq/L (136-145); Troponin High Sensitivity 3.3 pg/mL (<58.9)
[2024-09-15 17:09] LABS: Bilirubin Direct < 0.2 mg/dL (0-0.2); Bilirubin Indirect, Calculated 0.1 mg/dL (0.2-0.8)
--- NOTE | 2024-09-15 17:33 | ER ---
Nurse's Notes [facility] Name: Lefty Loomis Jr Age: 43 yrs Sex: Male : 1980 Arrival Date: 09/15/2024 Time: 14:24 Bed 19 Private MD: Diagnosis: Elevated blood-pressure reading, without diagnosis of hypertension;Other malaise;Dizziness and giddiness Presentation: 09/15 14:56 Chief complaint: Patient states: weakness, bright red rectal bleeding starting a week me1 ago. Dizzy. Ringing to left ear. Coronavirus screen: Vaccine status: Patient reports being unvaccinated. Ebola Screen: No symptoms or risks identified at this time. Initial Sepsis Screen: Does the patient meet any 2 criteria? No. Patient's initial sepsis screen is negative. Does the patient have a suspected source of infection? No. Patient's initial sepsis screen is negative. Risk Assessment: Do you want to hurt yourself or someone else? Patient reports no desire to harm self or others. Onset of symptoms is unknown. 14:56 Method Of Arrival: Ambulatory [facility] [place] 14:56 Acuity: ARY 3 me1 Triage Assessment: 15:00 General: Appears ill, well groomed, well developed, well nourished, Behavior is calm, me1 cooperative, appropriate for age, Reports weakness, bright red rectal bleeding starting a week ago. Dizzy. Ringing to left ear. 15:01 Pain: Denies pain. EENT: Reports ringing in left ear. Neuro: Level of Consciousness is me1 awake, alert, obeys commands, Oriented to person, place, time, situation, Appropriate for age. Neuro: Reports dizziness, weakness. Cardiovascular: Patient's skin is warm and dry. Respiratory: Reports shortness of breath at times Airway is patent Respiratory effort is even, unlabored, Respiratory pattern is regular, symmetrical. GI: Reports rectal bleeding. : No signs and/or symptoms were reported regarding the genitourinary system. Derm: Skin is intact, is healthy with good turgor, Skin is pink, warm \T\ dry. Musculoskeletal: No signs and/or symptoms reported regarding the musculoskeletal system. Historical: - Allergies: 14:59 Codeine; me1 - Home Meds: 14:59 None [Active]; me1 - PMHx: 14:59 None; me1 - PSHx: 14:59 right foot; me1 - Immunization history:: Adult Immunizations up to date. - Infectious Disease History:: Denies. - Social history:: Smoking status: Patient denies any tobacco usage or history of. Screenin:44 [facility] ED Fall Risk Assessment (Adult) History of falling in the last 3 months, mb9 including since admission No falls in past 3 months (0 pts) Confusion or Disorientation No (0 pts) Intoxicated or Sedated No (0 pts) Impaired Gait No (0 pts) Mobility Assist Device Used No (0 pt) Altered Elimination No (0 pt) Score/Fall Risk Level 0 - 2 = Low Risk Oriented to surroundings, Maintained a safe environment, Educated pt \T\ family on fall prevention, incl call for assistance when getting out of bed. Abuse screen: Denies threats or abuse. Nutritional screening: No deficits noted. Tuberculosis screening: No symptoms or risk factors identified. Assessment: 16:44 General: Appears in no apparent distress. Behavior is calm, cooperative. Pain: Denies mb9 pain. Neuro: Zamarripa Agitation-Sedation Scale (RASS): 0 - Alert and Calm Level of Consciousness is awake, alert, obeys commands, Oriented to person, place, time, situation, Appropriate for age Reports dizziness. Cardiovascular: Heart tones S1 S2 present Patient's skin is warm and dry. Respiratory: Airway is patent Respiratory effort is even, unlabored, Respiratory pattern is regular, symmetrical. GI: No signs and/or symptoms were reported involving the gastrointestinal system. : No signs and/or symptoms were reported regarding the genitourinary system. EENT: No signs and/or symptoms were reported regarding the EENT system. Derm: Skin is pink, warm \T\ dry. Musculoskeletal: Range of motion: intact in all extremities. 17:38 Reassessment: No changes from previously documented assessment. Patient and/or family mb9 updated on plan of care and expected duration. Pain level reassessed. Patient is alert, oriented x 3, equal unlabored respirations, skin warm/dry/pink. Vital Signs: 14:56 BP 153 / 116; Pulse 111; Resp 18; Temp 98.6; Pulse Ox 99% ; Weight 79.38 kg; Height 6 me1 ft. 0 in. ; Pain 0/10; 16:32 BP 147 / 105 Sitting; Pulse 98; Pulse Ox 100% on R/A; ty 16:41 BP 152 / 100 Supine; Pulse 96; Pulse Ox 98% on R/A; ty 16:49 BP 139 / 109 Standing; Pulse 109; Pulse Ox 98% on R/A; ty 17:38 BP 152 / 105; Pulse 90; Resp 18; Pulse Ox 100% ; mb9 14:56 Body Mass Index 23.73 (79.38 kg, 182.88 cm) me1 14:56 Pain Scale: Adult nc1 ED Course: 14:28 Patient arrived in ED. ra3 14:29 Christiane Romero FNP-C [facility]. kb 14:29 Pierre Corbett MD is Attending Physician. kb 14:59 Triage completed. me1 14:59 Arm band placed on Patient placed in waiting room. me1 15:26 CT Head Brain wo Cont In Process Unspecified. EDMS 16:00 Chest Single View XRAY In Process Unspecified. EDMS 16:29 Alem Leslie, RN is Primary Nurse. mb9 16:43 Initial lab(s) drawn, by me, sent to lab. EKG done, by ED staff, reviewed by Christiane TRIPLETT. Inserted saline lock: 20 gauge in right antecubital area, using aseptic technique. Blood collected. Flushed with 10 mL NS. 16:44 Placed in gown. Bed in low position. Call light in reach. Side rails up X 1. Provided tahir Education on: press call light if needing anything. Client placed on continuous cardiac and pulse oximetry monitoring. NIBP monitoring applied. monitoring engineer on. 16:51 No provider procedures requiring assistance completed. mb9 17:38 IV discontinued, intact, bleeding controlled, No redness/swelling at site. Pressure mb9 dressing applied. Administered Medications: No medications were administered Medication: 16:45 VIS not applicable for this client. mb9 Outcome: 17:31 Discharge ordered by . kb 17:38 Discharged to home ambulatory, mb9 17:38 Condition: stable 17:38 Discharge instructions given to patient, Instructed on discharge instructions, follow up and referral plans. Demonstrated understanding of instructions, follow-up care, medications, Prescriptions given X 1, 17:39 Patient left the ED. tahir Signatures: Dispatcher [employer] EDCT Christiane Romero FNP-C FNP-CkAlem Cline, RN RN mb9 Jennifer Christine RN RN me1 Hellen Suarez ra3 Brandon Bains Corrections: (The following items were deleted from the chart) 15: 14:56 Chief complaint: Patient states: weakness, bright red rectal bleeding starting me1 yesterday. Dizzy. Ringing to left ear. me1 15:01 14:56 Chief complaint: Patient states: weakness, bright red rectal bleeding starting a me1 week ago. Dizzy. Ringing to left ear. me1 15:03 15:00 General: Appears ill, well groomed, well developed, well nourished, Behavior is me1 calm, cooperative, appropriate for age, Reports me1
--- NOTE | 2024-09-15 17:33 | EDPHYS ---
Physician Documentation [facility] Name: Lefty Loomis Jr Age: 43 yrs Sex: Male : 1980 Arrival Date: 09/15/2024 Time: 14:24 Bed 19 Private MD: ED Physician Pierre Corbett HPI: 09/15 16:46 This 43 yrs old Male presents to ER via Ambulatory with complaints of Weakness - "I kb feel like I am sick". 16:46 Pt is a 43 year old male who presents for weakness, bright red rectal bleeding, high kb blood pressure, dizziness, near syncope that started 1.5 weeks ago. States he was bending down at work today and got dizzy when he stood up so that is what prompted his visit today. States he has been to his PCP twice since symptom onset and was put on amoxicillin for possible dental infection. . Historical: - Allergies: 14:59 Codeine; me1 - Home Meds: 14:59 None [Active]; me1 - PMHx: 14:59 None; me1 - PSHx: 14:59 right foot; me1 - Immunization history:: Adult Immunizations up to date. - Infectious Disease History:: Denies. - Social history:: Smoking status: Patient denies any tobacco usage or history of. ROS: 16:46 Constitutional: As per HPI kb Exam: 16:46 Constitutional: This is a well developed, well nourished patient who is awake, alert, kb and in no acute distress. Head/Face: Normocephalic, atraumatic. ENT: Moist Mucous membranes Cardiovascular: Regular rate Respiratory: Respirations even and unlabored. No increased work of breathing. Talking in full sentences Abdomen/GI: Soft, non-tender. No distention Skin: Warm, dry with normal turgor. Normal color. MS/ Extremity: Pulses equal, no cyanosis. Neurovascular intact. Full, normal range of motion. Neuro: Awake and alert, GCS 15, oriented to person, place, time, and situation. 16:50 ECG was reviewed by the Attending Physician. kb 17:32 Constitutional: The patient appears anxious, kb Vital Signs: 14:56 BP 153 / 116; Pulse 111; Resp 18; Temp 98.6; Pulse Ox 99% ; Weight 79.38 kg; Height 6 me1 ft. 0 in. ; Pain 0/10; 16:32 BP 147 / 105 Sitting; Pulse 98; Pulse Ox 100% on R/A; ty 16:41 BP 152 / 100 Supine; Pulse 96; Pulse Ox 98% on R/A; ty 16:49 BP 139 / 109 Standing; Pulse 109; Pulse Ox 98% on R/A; ty 17:38 BP 152 / 105; Pulse 90; Resp 18; Pulse Ox 100% ; mb9 14:56 Body Mass Index 23.73 (79.38 kg, 182.88 cm) me1 14:56 Pain Scale: Adult me1 MDM: 14:29 Medical Screening Exam initiated kb 16:50 Data reviewed: vital signs, nurses notes. kb 17:29 Differential Diagnosis anxiety, hypertension, GI bleed, anemia. Management of patient antonio was discussed with the following: Dr Corbett, recommends follow up with PCP. Counseling: I had a detailed discussion with the patient and/or guardian regarding the historical points, exam findings, and any diagnostic results supporting the discharge/admit diagnosis, lab results, radiology results, the need for outpatient follow up, a family practitioner, to return to the emergency department if symptoms worsen or persist or if there are any questions or concerns that arise at home. Special discussion: I have referred the patient to see his PCP for further evaluation of high blood pressure. ED course: Pt has been keeping bp log all week. States his blood pressure has been averaging 160s/90s. Will prescribe HCTZ, but pt informed of importance of follow up with PCP for further management. 17:32 Test considered but Not performed: CT: ct abd considered but pt has no abd tenderness, kb no reported abd pain, fever, n/v/d. 09/15 15:06 Order name: Basic Metabolic Panel; Complete Time: 17:16 kb 09/15 15:06 Order name: CBC with Diff; Complete Time: 16:50 kb 09/15 15:06 Order name: Hepatic Function; Complete Time: 17:16 kb 09/15 15:06 Order name: Magnesium; Complete Time: 17:16 kb 09/15 15:06 Order name: Protime (+inr); Complete Time: 16:57 kb 16 15:06 Order name: Ptt, Activated; Complete Time: 16:57 kb 09/15 15:06 Order name: Troponin High Sensitivity; Complete Time: 17:16 kb 09/15 15:06 Order name: CT Head Brain wo Cont; Complete Time: 16:00 kb 09/15 15:06 Order name: Chest Single View XRAY; Complete Time: 16:14 kb 09/15 15:06 Order name: Cardiac monitoring; Complete Time: 16:43 kb 09/15 15:06 Order name: EKG - Nurse/Tech; Complete Time: 16:43 kb 09/15 15:06 Order name: IV Saline Lock; Complete Time: 16:43 kb 09/15 15:06 Order name: Labs collected and sent; Complete Time: 16:43 kb 09/15 15:06 Order name: NPO; Complete Time: 16:32 kb 09/15 15:06 Order name: O2 Per Protocol; Complete Time: 16:32 kb 09/15 15:06 Order name: O2 Sat Monitoring; Complete Time: 16:32 kb 09/15 15:06 Order name: Orthostatics; Complete Time: 16:43 kb EC:50 Rate is 88 beats/min. Rhythm is regular. QRS [place] is Normal. MD interval is normal at kb 160 msec. QRS interval is normal at 96 msec. QT interval is normal at 416 msec. Administered Medications: No medications were administered Disposition Summary: 09/15/24 17:31 Discharge Ordered Notes: Location: Home kb Condition: Stable kb Diagnosis - Elevated blood-pressure reading, without diagnosis of hypertension kb - Other malaise kb - Dizziness and giddiness kb Followup: kb - With: Emergency Department - When: As needed - Reason: Worsening of condition Followup: kb - With: Private Physician - When: 2 - 3 days - Reason: Recheck today's complaints, Continuance of care, Re-evaluation by your physician Discharge Instructions: - Discharge Summary Sheet kb - Near-Syncope, [id number] kb - Hypertension, Adult, [id number] kb - Dizziness, [id number] kb Forms: - Medication Reconciliation Form kb - Antibiotic Education kb - Prescription Opioid Use kb - Patient Portal Instructions kb - Leadership Thank You Letter kb - Work release form mb9 Prescriptions: - Hydrochlorothiazide 12.5 mg Oral Tablet - take 1 tablet ORAL route once daily; 30 tablet; Refills: 0, Product Selection kb Permitted Signatures: Dispatcher [employer] Christiane Zuniga, OPTICS ENGINEER-C Jennifer Guzman, RN RN me1 Corrections: (The following items were deleted from the chart) 15:06 15:06 Head Brain Wo Cont+[id number].RAD.BRZ ordered. EDMS EDMS
[2024-09-15 17:54] VITALS: TEMP 98.6
[2024-09-15 17:59] VITALS: BP 152/105; O2SAT 100
== END 2024-09-15 17:39 | disposition home or self-care (01) ==
LOC: ER 14:24
DX: R03.0 Elevated blood-pressure reading, without diagnosis of hypertension (principal); R53.81 Other malaise
CPT/HCPCS: 36415; 70450; 71045; 80048; 80076; 83735; 84484; 85025; 85610; 85730; 93005; 99284

== ENCOUNTER 2025-05-27 11:22 | Emergency (ER) | payer MEDICARE ==
[2025-05-27] MEDS ORDERED: NA CHLORIDE 0.9% 1,000 ML ONE (12:09)
[2025-05-27 12:36] LABS: Absolute Lymphocytes (CBC) 1.8 K/uL (0.7-4.9); Hematocrit 48.9 % (39.6-49.0); Hemoglobin 16.5 g/dL (13.6-17.9); MCH 32.1 pg (27.0-35.0); MCHC 33.7 g/dL (32.0-36.0); MCV 95.2 fL (80-100); MPV 7.8 fL (7.6-11.3); Nucleated RBC Absolute Count 0.0 (0-0); Nucleated Red Blood Cells % 0.1 % (0-0); RBC Red Blood Cell Count 5.14 M/uL (4.33-5.43); White Blood Count 6.10 thou/uL (4.3-10.9)
--- NOTE | 2025-05-27 12:37 | RAD REPORT ---
Procedure: Chest Single View HISTORY: Chest pain COMPARISON: August 2024 FINDINGS: The lungs appear clear of acute infiltrate. No significant pleural effusion noted. The heart is normal size. IMPRESSION: No acute abnormality is displayed.
[2025-05-27 12:43] LABS: PT Prothrombin Time 12.3 SECONDS (10-13.0); Protime INR 1.09
[2025-05-27 12:49] LABS: Influenza A Ag Negative; Influenza B Ag Negative; SARS-CoV-2 Antigen Rapid Res Negative (Negative)
[2025-05-27 12:55] LABS: ALT/SGPT 25 U/L (16-61); AST/SGOT 23 U/L (15-37); Albumin 4.0 g/dL (3.4-5.0); Albumin/Globulin Ratio 1.0 (1.1-1.8); Alkaline Phosphatase 79 U/L (45-117); Anion Gap 11.0 mEq/L (5.0-15.0); BUN Blood Urea Nitrogen 10 mg/dL (7-18); Globulin 4.2 g/dL (2.3-3.5); Glucose Level 96 mg/dL (74-106); Magnesium 2.0 mg/dL (1.6-2.4); NT PRO-BNP 13 pg/mL (<125); Potassium 4.0 mEq/L (3.5-5.1); Troponin High Sensitivity 3.1 pg/mL (<58.9)
[2025-05-27 12:56] LABS: Bilirubin Indirect, Calculated 0.6 mg/dL (0.2-0.8)
--- NOTE | 2025-05-27 12:56 | RAD REPORT ---
EXAM: CT Head Brain Wo Cont HISTORY: aura;Headache COMPARISON: 09/15/2024 TECHNIQUE: Multiple contiguous axial images were obtained for a CT of the brain without contrast. Sag ittal and coronal reformats were performed. One or more of the following dose reduction techniques were used: Automated exposure control, adjus tment of the mA and kV according to patient size, and iterative reconstruction. Unless otherwise specified, incidental findings do not require dedicated imaging follow-up. FINDINGS: No evidence of hydrocephalus, intracranial hemorrhage, or extra-axial fluid collection. The brain is normal in morphology. The calvarium is intact. The visualized paranasal sinuses and mastoid air cells are essentially clear . IMPRESSION: No evidence of acute intracranial abnormality.
[2025-05-27] MEDS ORDERED: DIPHENHYDRAMINE 50 MG/ML VIAL ONE (13:20)
[2025-05-27] MEDS ORDERED: KETOROLAC 30 MG/ML INJ ONE (13:20)
[2025-05-27] MEDS ORDERED: METOCLOPRAMIDE 10 MG/2mL INJ ONE (13:20)
--- NOTE | 2025-05-27 13:34 | RAD REPORT ---
EXAMINATION: CTA HEAD CLINICAL INDICATION: Headache .Aura TECHNIQUE: Axial CT images were obtained through the head after 100 cc Isovue-370 intravenous contras t utilizing angiographic protocol with 3D post-processing (maximum intensity projection images, volume rendered images and/or shaded surface rendered images). One or more of the following dose red uction techniques were used: Automated exposure control, adjustment of the mA and/or kV according to patient size, and/or iterative reconstruction. Unless otherwise specified, incidental findings do not require dedicated imaging follow-up. COMPARISON: None FINDINGS: Distal internal carotid, basilar, anterior cerebral, middle cerebral and posterior cerebral arteries do not demonstrate a significant stenosis An aneurysm not noted. No large vessel occlusion IMPRESSION: No acute vascular abnormality displayed
--- NOTE | 2025-05-27 13:35 | RAD REPORT ---
EXAMINATION: Neck Angio CLINICAL INDICATION: Aura, headache TECHNIQUE: Axial CT images were obtained from the aortic arch to the skull base after intravenous adm inistration of 100 cc Isovue-370 utilizing angiographic protocol. Multiplanar reformats, as well as 3D post-processing (maximum intensity projection images, volume rendered images and/or shaded surface rendered images) were generated and reviewed. One or more of the following dose reduction techniques were used: Automated exposure control, adjustment of the mA and/or kV according to patient size, and/or iterative reconstruction. Unless otherwise specified, incidental findings do not require dedicated imaging follow-up. COMPARISON: No prior exam. FINDINGS: The visualized aortic arch and great vessels do not demonstrate a significant abnormality Common carotid, internal carotid and external carotid arteries bilaterally unremarkable Vertebral arteries bilaterally unremarkable No significant stenosis noted. A dissection is not seen. Methods for NASCET criteria: Mild stenosis, 0% to 49%; Moderate stenosis 50% to 69%; Severe stenosis, 70% to 99% IMPRESSION: No acute vascular abnormality displayed
--- NOTE | 2025-05-27 14:48 | EDPHYS ---
Physician Documentation [facility] Name: Lefty Loomis Jr Age: 44 yrs Sex: Male : 1980 Arrival Date: 05/27/2025 Time: 11:22 Bed 24 Private MD: ED Physician Slim Benavidez HPI: 05/27 15:51 This 44 yrs old Male presents to ER via Ambulatory with complaints of Probable Seizure, sb4 Vomiting. 15:51 Patient states that he has been experiencing nausea and vomiting over the past few sb4 days, has been unable to hold down his antihypertensive medications. States that he woke up this morning with a left-sided headache, states he went to the restroom and got very shaky. Thought he maybe had a seizure. Started to drive to work but was feeling poorly so came here instead. States he does feel tightness in his chest as well. Denies any history of seizures. Historical: - Allergies: 11:40 Codeine; jl7 - Home Meds: 11:40 losartan oral [Active]; jl7 - PMHx: 11:40 Hypertensive disorder; jl7 - PSHx: 11:40 right foot; jl7 - Immunization history:: Adult Immunizations unknown. - Infectious Disease History:: Denies. - Social history:: Smoking status: unknown. ROS: 15:51 Constitutional: Negative for fever, chills, and weight loss, sb4 15:51 Abdomen/GI: Positive for nausea and vomiting, 15:51 Neuro: Positive for dizziness, 15:51 All other systems are negative, Exam: 15:51 Head/Face: Normocephalic, atraumatic. Eyes: Extra-ocular motions intact. Periorbital sb4 areas with no swelling, redness, or edema. ENT: Mucous membranes moist. Cardiovascular: Regular rate and rhythm with a normal S1 and S2. Respiratory: No increased work of breathing, no retractions or nasal flaring. Abdomen/GI: Soft, non-tender, no distension. Skin: Warm, dry with normal turgor. Normal color with no rashes, no lesions, and no evidence of cellulitis. MS/ Extremity: Pulses equal, no cyanosis. Neurovascular intact. Full, normal range of motion. Neuro: Awake and alert, GCS 15, oriented to person, place, time, and situation. Motor strength 5/5 in all extremities. Sensory grossly intact. 15:51 Constitutional: The patient appears in no acute distress, alert, awake, anxious, Vital Signs: 11:48 BP 155 / 102; Pulse 88; Resp 15; Temp 97.9; Pulse Ox 100% ; jl7 12:40 BP 143 / 95; Pulse 89; Resp 18; Pulse Ox 99% ; Pain 7/10; rg5 13:30 BP 140 / 97; Pulse 90; Resp 18; Pulse Ox 99% ; rg5 12:40 Pain Scale: Adult rg5 [place] Coma Score: 11:48 Eye Response: spontaneous(4). Motor Response: obeys commands(6). Verbal Response: jl7 oriented(5). Total: 15. MDM: 11:28 Medical Screening Exam initiated sb4 16:55 Differential diagnosis: drug overdose, cardiac arrhythmia, seizure, TIA, migraine, ACS, sb4 hypertensive headache, electrolyte abnormality. Data reviewed: vital signs, nurses notes, lab test result(s), EKG, radiologic studies, and as a result, I will discharge patient. Consideration of Admission/Observation Escalation of care including admission/observation considered. Scoring Tools HEART Score: History: ECG: Age: Risk Factors: 1 or 2 risk factors (1), Troponin: Total Score = 1. Counseling: I had a detailed discussion with the patient and/or guardian regarding the historical points, exam findings, and any diagnostic results supporting the discharge/admit diagnosis, the presence of at least one elevated blood pressure reading (>120/80) during this emergency department visit, lab results, radiology results, the need for outpatient follow up, for definitive care, to return to the emergency department if symptoms worsen or persist or if there are any questions or concerns that arise at home. Special discussion: Based on the patient's history, exam, and Dx evaluation, there is no indication for emergent intervention or inpatient Tx. It is understood by the patient/guardian that if the Sx's persist or worsen they need to return immediately for re-evaluation. I discussed with the patient/guardian in detail that at this point there is no indication for admission to the hospital. It is understood, however, that if the symptoms persist or worsen the patient needs to return immediately for re-evaluation. 05/27 11:44 Order name: Basic Metabolic Panel; Complete Time: 12:58 sb4 05/27 11:44 Order name: CBC with Diff; Complete Time: 12:43 sb4 05/27 11:44 Order name: LFT's; Complete Time: 12:58 sb4 05/27 11:44 Order name: Magnesium; Complete Time: 12:58 sb4 05/27 11:44 Order name: NT PRO-BNP; Complete Time: 12:58 sb4 05/27 11:44 Order name: PT-INR; Complete Time: 12:43 sb4 05/27 11:44 Order name: Troponin HS; Complete Time: 12:58 sb4 05/27 11:44 Order name: COVID-19 Ag + Flu A+B Ag; Complete Time: 12:50 sb4 05/27 11:44 Order name: XRAY Chest (1 view); Complete Time: 12:38 sb4 05/27 11:44 Order name: Head Brain Wo Cont CT; Complete Time: 12:58 sb4 05/27 12:58 Order name: CT Head Angio; Complete Time: 13:38 sb4 05/27 12:58 Order name: CT Neck Angio; Complete Time: 13:38 sb4 05/27 11:44 Order name: Cardiac monitoring; Complete Time: 12:21 sb4 05/27 11:44 Order name: EKG - Nurse/Tech; Complete Time: 11:49 sb4 05/27 11:44 Order name: IV Saline Lock; Complete Time: 12:21 sb4 05/27 11:44 Order name: Labs collected and sent; Complete Time: 12:21 sb4 05/27 11:44 Order name: O2 Per Protocol; Complete Time: 12:21 sb4 05/27 11:44 Order name: O2 Sat Monitoring; Complete Time: 12:21 sb4 EC:51 Rate is 88 beats/min. Rhythm is regular, Sinus arrythmia. [place] interval is normal at 163 sb4 msec. QRS interval is normal at 97 msec. QT interval is normal at 337 msec. No Q waves. T waves are Normal. No ST changes noted. Clinical impression: No evidence of ischemia. Interpreted by me. Reviewed by me. Administered Medications: 12:21 Drug: NS 0.9% IV 1000 ml IV at 1000 ml once; to be given as a bolus over 60 minutes rg5 Route: IV; Rate: 1000 ml; Site: right antecubital; 13:52 Follow up: IV Status: Completed infusion; IV Intake: 1000ml rg5 13:26 Drug: Ketorolac IVP 15 mg IVP once Route: IVP; Site: right antecubital; rg5 13:50 Follow up: Response: No adverse reaction; Pain is decreased rg5 13:26 Drug: metoCLOPramide IVP 10 mg IVP once; over 1 to 2 minutes Route: IVP; Site: right rg5 antecubital; 13:50 Follow up: Response: No adverse reaction; Pain is decreased rg5 13:26 Drug: diphenhydrAMINE IVP 25 mg IVP once Route: IVP; Site: right antecubital; rg5 13:50 Follow up: Response: No adverse reaction; Pain is decreased rg5 Disposition: 18:24 I was immediately available on-site in the Emergency Department for consultation in the ms3 care of the patient. Disposition Summary: 05/27/25 14:47 Discharge Ordered Notes: Location: Home sb4 Problem: new sb4 Symptoms: have improved sb4 Condition: Stable sb4 Diagnosis - Migraine with aura sb4 Followup: sb4 - With: Emergency Department - When: As needed - Reason: Trouble breathing, Worsening of condition Discharge Instructions: - Discharge Summary Sheet sb4 - Migraine Headache, [id number] sb4 Forms: - Work release form sb4 - Patient Portal Instructions sb4 - Leadership Thank You Letter sb4 Prescriptions: - ondansetron 4 mg Oral Tablet,disintegrating - take 1 tablet ORAL route every 6 hours as needed for nausea and vomiting; 10 sb4 tablet; Refills: 0, Product Selection Permitted Signatures: Dispatcher [employer] EDMS Cindy Bardales RN RN jl7 Slim Benavidez DO DO ms3 Tuyet Javier PA-C PALisa sb4 Jovany Harden RN RN rg5 Corrections: (The following items were deleted from the chart) 11:44 11:44 BASIC METABOLIC PANEL+C.LAB.BRZ ordered. EDMS EDMS 11:44 11:44 CBC+H.LAB.BRZ ordered. EDMS EDMS 11:44 11:44 HEPATIC FUNCTION+C.LAB.BRZ ordered. EDMS EDMS 11:44 11:44 MAGNESIUM+C.LAB.BRZ ordered. EDMS EDMS 11:44 11:44 PROBNP+C.LAB.BRZ ordered. EDMS EDMS 11:44 PROTIME (+INR)+COAG.LAB.BRZ ordered. EDMS EDMS 11:44 Troponin High Sensitivity+C.LAB.BRZ ordered. EDMS EDMS 11:44 COVID-19 Ag + Flu A+B Ag+I.LAB.BRZ ordered. EDMS EDMS 11:44 Chest Single View+RAD.RAD.BRZ ordered. EDMS EDMS :45 11:45 Head Brain Wo Cont+CT.RAD.BRZ ordered. EDMS EDMS
--- NOTE | 2025-05-27 14:48 | ER ---
Nurse's Notes [facility] Name: Lefty Loomis Jr Age: 44 yrs Sex: Male : 1980 Arrival Date: 05/27/2025 Time: 11:22 Bed 24 Private MD: Diagnosis: Migraine with aura Presentation: 05/27 11:48 Chief complaint: Patient states: N/V x 2 days, hasn't taken HTN meds, doesn't feel jl7 right. Coronavirus screen: At this time, the client does not indicate any symptoms associated with coronavirus-19. Ebola Screen: No symptoms or risks identified at this time. Initial Sepsis Screen: Does the patient meet any 2 criteria? No. Patient's initial sepsis screen is negative. Does the patient have a suspected source of infection? No. Patient's initial sepsis screen is negative. Risk Assessment: Do you want to hurt yourself or someone else? Patient reports no desire to harm self or others. Onset of symptoms is unknown. 11:48 Method Of Arrival: Ambulatory jl7 11:48 Acuity: ARY 2 jl7 Triage Assessment: 11:48 General: Appears in no apparent distress. uncomfortable, Behavior is cooperative, jl7 anxious. Pain: Denies pain. Neuro: [place] Agitation-Sedation Scale (RASS): +1 Restless Level of Consciousness is awake, alert, obeys commands, Oriented to person, place, time, situation. Historical: - Allergies: 11:40 Codeine; jl7 - Home Meds: 11:40 losartan oral [Active]; jl7 - PMHx: 11:40 Hypertensive disorder; jl7 - PSHx: 11:40 right foot; jl7 - Immunization history:: Adult Immunizations unknown. - Infectious Disease History:: Denies. - Social history:: Smoking status: unknown. Screenin:15 [facility] ED Fall Risk Assessment (Adult) History of falling in the last 3 months, rg5 including since admission Yes- single mechanical fall (1 pt) Confusion or Disorientation No (0 pts) Intoxicated or Sedated No (0 pts) Impaired Gait No (0 pts) Mobility Assist Device Used No (0 pt) Altered Elimination No (0 pt) Score/Fall Risk Level 0 - 2 = Low Risk Oriented to surroundings, Maintained a safe environment. Abuse screen: Denies threats or abuse. Nutritional screening: No deficits noted. Tuberculosis screening: No symptoms or risk factors identified. Assessment: 12:15 General: Appears in no apparent distress. Behavior is calm, cooperative, appropriate rg5 for age. Pain: Complains of pain in head and back Quality of pain is described as aching, dull. Neuro: Level of Consciousness is awake, alert, obeys commands, Oriented to person, place, time, situation, Reports headache. Cardiovascular: Patient's skin is warm and dry. Rhythm is sinus arrythmia. Respiratory: Airway is patent Respiratory effort is even, unlabored. GI: Abdomen is flat, Reports nausea, vomiting. : No signs and/or symptoms were reported regarding the genitourinary system. EENT: No signs and/or symptoms were reported regarding the EENT system. Derm: Skin is intact, Skin is dry, Skin is normal. Musculoskeletal: Circulation, motion, and sensation intact. Range of motion: intact in all extremities. 13:35 Reassessment: Patient and/or family updated on plan of care and expected duration. Pain rg5 level reassessed. Patient is alert, oriented x 3, equal unlabored respirations, skin warm/dry/pink. Patient states symptoms have improved. Vital Signs: 11:48 BP 155 / 102; Pulse 88; Resp 15; Temp 97.9; Pulse Ox 100% ; jl7 12:40 BP 143 / 95; Pulse 89; Resp 18; Pulse Ox 99% ; Pain 7/10; rg5 13:30 BP 140 / 97; Pulse 90; Resp 18; Pulse Ox 99% ; rg5 12:40 Pain Scale: Adult rg5 [place] Coma Score: 11:48 Eye Response: spontaneous(4). Motor Response: obeys commands(6). Verbal Response: jl7 oriented(5). Total: 15. ED Course: 11:23 Patient arrived in ED. mr 11:28 Tuyet Javier PA-C is PHCP. sb4 11:28 Slim Benavidez DO is Attending Physician. sb4 11:48 Arm band placed on right wrist. EKG completed in triage. Results shown to MD. jl7 11:49 Triage completed. jl7 11:54 Jovany Harden, JAYANT is Primary Nurse. rg5 12:06 Head Brain Wo Cont CT In Process Unspecified. EDMS 12:12 XRAY Chest (1 view) In Process Unspecified. EDMS 12:15 Patient has correct armband on for positive identification. Bed in low position. Call rg5 light in reach. Side rails up X 1. Door closed. Noise minimized. Warm blanket given. 12:15 No provider procedures requiring assistance completed. Inserted saline lock: 20 gauge rg5 in right antecubital area, using aseptic technique. Blood collected. Flushed with 10 mL NS. 13:14 CT Head Angio In Process Unspecified. EDMS 13:14 CT Neck Angio In Process Unspecified. EDMS 15:03 IV discontinued, bleeding controlled, No redness/swelling at site. Pressure dressing rg5 applied. Administered Medications: 12:21 Drug: NS 0.9% IV 1000 ml IV at 1000 ml once; to be given as a bolus over 60 minutes rg5 Route: IV; Rate: 1000 ml; Site: right antecubital; 13:52 Follow up: IV Status: Completed infusion; IV Intake: 1000ml rg5 13:26 Drug: Ketorolac IVP 15 mg IVP once Route: IVP; Site: right antecubital; rg5 13:50 Follow up: Response: No adverse reaction; Pain is decreased rg5 13:26 Drug: metoCLOPramide IVP 10 mg IVP once; over 1 to 2 minutes Route: IVP; Site: right rg5 antecubital; 13:50 Follow up: Response: No adverse reaction; Pain is decreased rg5 13:26 Drug: diphenhydrAMINE IVP 25 mg IVP once Route: IVP; Site: right antecubital; rg5 13:50 Follow up: Response: No adverse reaction; Pain is decreased rg5 Medication: 12:15 VIS not applicable for this client. rg5 Intake: 13:52 IV: 1000ml; Total: 1000ml. rg5 Outcome: 14:47 Discharge ordered by . sb4 15:03 Discharged to home ambulatory, rg5 15:03 Condition: stable 15:03 Discharge instructions given to patient, Instructed on discharge instructions, Demonstrated understanding of instructions, Prescriptions given X 15:04 Patient left the ED. rg5 Signatures: Dispatcher [employer] EDMS Alem Guerrero, Anthony Cruz mr Cindy Bardales RN RN [email or web address] Tuyet Javier, PA-C PA-C sb4 Harden, Jovany, RN RN rg5
[2025-05-27 20:27] VITALS: TEMP 97.9
[2025-05-27 20:28] VITALS: O2SAT 99
[2025-05-27 20:30] VITALS: BP 140/97
== END 2025-05-27 15:04 | disposition home or self-care (01) ==
LOC: ER 11:22
DX: G43.109 Migraine with aura, not intractable, without status migrainosus (principal); Z11.52 Encounter for screening for COVID-19
CPT/HCPCS: 36415; 70450; 70496; 70498; 71045; 80048; 80076; 83735; 83880; 84484; 85025; 85610; 87428; 93005; 96361; 96374; 96375; 99284; J1200; J1885; J2765; J7030; Q9967